=== PATIENT | male | born 1980 | race Caucasian/White ===

== ENCOUNTER 2023-09-08 11:22 | Emergency (ER) | payer MEDICAID ==
[~2023-09-08] VITALS: Ht 190.5 cm; Wt 95.2 kg
== END 2023-09-08 12:12 | disposition home or self-care (01) ==
LOC: ER 11:22
DX: Z76.0 Encounter for issue of repeat prescription (principal); Z88.0 Allergy status to penicillin
CPT/HCPCS: 99281

== ENCOUNTER 2024-04-27 10:05 | Emergency (ER) | payer OTHER ==
[~2024-04-27] VITALS: Ht 190.5 cm; Wt 95.2 kg
[~2024-04-27 10:05] MED LIST: NARCAN4 M1; SUBOXONE 4 MG SL
[2024-04-27] MEDS ORDERED: Buprenorphine HCL/Naloxone HCL 8MG-2MG Tab SL ONE (10:15)
== END 2024-04-27 10:40 | disposition home or self-care (01) ==
LOC: ER 10:05
DX: F11.90 Opioid use, unspecified, uncomplicated (principal); Z76.0 Encounter for issue of repeat prescription; F17.200 Nicotine dependence, unspecified, uncomplicated; Z79.899 Other long term (current) drug therapy; Z88.0 Allergy status to penicillin
CPT/HCPCS: 99281; A9270

== ENCOUNTER 2025-03-20 09:46 | Emergency (ER) | payer OTHER ==
[~2025-03-20] VITALS: Ht 190.5 cm; Wt 88.0 kg
[2025-03-20] MEDS ORDERED: SUBOXONE 8 MG-1 EACH SL (10:17)
== END 2025-03-20 10:20 | disposition home or self-care (01) ==
LOC: ER 09:46
DX: F11.10 Opioid abuse, uncomplicated (principal); Z76.0 Encounter for issue of repeat prescription; F17.210 Nicotine dependence, cigarettes, uncomplicated; Z88.0 Allergy status to penicillin
CPT/HCPCS: 99281

== ENCOUNTER 2025-03-27 13:38 | Emergency (ER) | payer OTHER ==
[~2025-03-27] VITALS: Ht 190.5 cm; Wt 90.7 kg
[~2025-03-27 13:38] MED LIST changes: +SUBOXONE 8 MG-1 EACH SL
[2025-03-27] MEDS ORDERED: SUBOXONE 8 MG-1 EACH SL (15:41)
== END 2025-03-27 14:01 | disposition home or self-care (01) ==
LOC: ER 13:38
DX: F11.90 Opioid use, unspecified, uncomplicated (principal); Z76.0 Encounter for issue of repeat prescription; F17.210 Nicotine dependence, cigarettes, uncomplicated; Z79.899 Other long term (current) drug therapy; Z88.0 Allergy status to penicillin
CPT/HCPCS: 99283